=== PATIENT | female | born 1960 | race Caucasian/White ===

== ENCOUNTER 2016-07-19 14:17 | Emergency (ER) | payer OTHER ==
[~2016-07-19] VITALS: Ht 160 cm; Wt 120.1 kg
[~2016-07-19 14:17] MED LIST: ADVIL200 MG PO; ALBUTEROL SULF8.5 GM IH; BACTRIM,SEPT1 TABLET PO; CEFDINIR300 MG PO; CIPRO500 MG PO; CLEOCIN300 MG PO; KEFLEX500 MG PO; KENALOG,ARISTOC80 G1 TP; KENALOG,ARISTOC80 GM TP; LEVAQUIN750 MG PO; NOHOMEMEDS; PERCOCET 5/31 TABLET PO; PREDNISONE20 MG PO; PROAIR HFA8.5 GM IH; PYRIDIUM100 MG PO; ZITHROMAX250 MG PO
[2016-07-19] MEDS ORDERED: ERYTHROMYCIN O3.5 GM LEFT EYE (18:01)
[2016-07-19 18:31] VITALS: BP 142/89
== END 2016-07-19 18:32 | disposition home or self-care (01) ==
LOC: EME 14:17
DX: H10.9 Unspecified conjunctivitis (principal); H61.22 Impacted cerumen, left ear; J06.9 Acute upper respiratory infection, unspecified; Z87.891 Personal history of nicotine dependence
CPT/HCPCS: 99281; 99284

== ENCOUNTER 2016-12-12 07:37 | Emergency (ER) | payer OTHER ==
[~2016-12-12] VITALS: Ht 160 cm; Wt 130.8 kg
[~2016-12-12 07:37] MED LIST changes: +ERYTHROMYCIN O3.5 GM LEFT EYE
[2016-12-12 08:15] LABS: HEMATOCRIT 41.7 % (36.0-46.0); MCHC 32.1 G/DL (30.0-36.0); MCV 93.3 FL (83-99); PLATELET COUNT 229 K/uL (156-360); RBC DIS.WIDTH-CV 12.7 % (11.8-14.6); RBC DIS.WIDTH-SD 44.1 % (39-53); RED BLOOD COUNT 4.47 M/uL (3.80-5.20); WHITE BLOOD COUNT 10.1 K/uL (4.1-10.2)
[2016-12-12 08:20] LABS: ADD MIUA? YES; BILIRUBIN NEGATIVE; BLOOD LARGE; COLOR AMBER ((YELLOW)); GLUCOSE (STRIP) NEGATIVE; KETONES NEGATIVE; LEUKOCYTES LARGE; NITRITE NEGATIVE; PROTEIN (STRIP) 100; SPECIFIC GRAVITY 1.031 (1.000-1.030); UROBILINOGEN 0.2 MG/DL (0.2-1.0)
[2016-12-12 08:25] LABS: CHLORIDE 105 mEq/L (99-109); POTASSIUM 4.1 mEq/L (3.7-5.4); SODIUM 137 mEq/L (136-147)
[2016-12-12 08:27] LABS: GLUCOSE 117 mg/dL (70-99)
[2016-12-12 08:28] LABS: ANION GAP 6 MEQ/L (2-14)
[2016-12-12 08:29] LABS: TOTAL BILIRUBIN 0.4 mg/dL (0.0-1.0)
[2016-12-12 08:30] LABS: ALKALINE PHOSPHATASE 94 IU/L (3-129)
[2016-12-12 08:31] LABS: GFR ESTIMATE (CALCULATED) > 59 mL/min/
[2016-12-12 08:32] LABS: UREA NITROGEN (BUN) 18 mg/dL (9-23)
[2016-12-12 08:39] LABS: QUANTITATIVE HCG < 4.0 MIU/ML
[2016-12-12 08:40] LABS: BACTERIA 2+ /HPF; CASTS NONE SEEN /LPF; CRYSTALS NONE SEEN; EPITHELIAL CELLS RARE /HPF; MUCUS NONE SEEN /LPF; RED BLOOD CELLS 15-20 /HPF (0-5); UCUL ADDED? YES; WHITE BLOOD CELLS TNTC /HPF (0-5)
[2016-12-12] MEDS ORDERED: KEFLEX500 MG PO (11:10)
[2016-12-12] MEDS ORDERED: PYRIDIUM100 MG PO (11:10)
[2016-12-12] MEDS ORDERED: KENALOG,ARISTOC80 G1 TP (11:11)
[2016-12-12 11:19] VITALS: BP 149/79
== END 2016-12-12 11:20 | disposition home or self-care (01) ==
LOC: EME 07:37
DX: N39.0 Urinary tract infection, site not specified (principal); L20.89 Other atopic dermatitis; Z87.440 Personal history of urinary (tract) infections; Z88.0 Allergy status to penicillin; Z88.5 Allergy status to narcotic agent; Z87.891 Personal history of nicotine dependence
CPT/HCPCS: 80053; 81003; 84702; 85027; 87086; 99281; 99284

== ENCOUNTER 2016-12-29 18:38 | Emergency (ER) | payer OTHER ==
[~2016-12-29] VITALS: Ht 160 cm; Wt 130.7 kg
[2016-12-29 19:07] LABS: ADD MIUA? YES; BILIRUBIN NEGATIVE; BLOOD NEGATIVE; COLOR AMBER ((YELLOW)); GLUCOSE (STRIP) NEGATIVE; KETONES NEGATIVE; LEUKOCYTES TRACE; NITRITE POSITIVE; PROTEIN (STRIP) 30; SPECIFIC GRAVITY 1.023 (1.000-1.030)
[2016-12-29 19:13] LABS: BACTERIA RARE /HPF; EPITHELIAL CELLS 1+ /HPF; MUCUS 1+ /LPF; UCUL ADDED? NO; WHITE BLOOD CELLS 30-40 /HPF (0-5)
[2016-12-29] MEDS ORDERED: CIPRO250 MG PO (20:44)
[2016-12-29] MEDS ORDERED: PYRIDIUM200 MG PO (20:44)
[2016-12-29 21:29] VITALS: BP 144/88
== END 2016-12-29 21:31 | disposition home or self-care (01) ==
LOC: EME 18:38
DX: N39.0 Urinary tract infection, site not specified (principal); Z87.440 Personal history of urinary (tract) infections; Z87.891 Personal history of nicotine dependence
CPT/HCPCS: 81003; 99281; 99284

== ENCOUNTER 2017-03-15 10:51 | Emergency (ER) | payer OTHER ==
[~2017-03-15] VITALS: Ht 160 cm; Wt 132.4 kg
[~2017-03-15 10:51] MED LIST changes: +CIPRO250 MG PO; +PYRIDIUM200 MG PO
[2017-03-15 11:23] LABS: ADD MIUA? YES; BILIRUBIN NEGATIVE; BLOOD SMALL; COLOR AMBER ((YELLOW)); GLUCOSE (STRIP) NEGATIVE; KETONES NEGATIVE; LEUKOCYTES TRACE; NITRITE POSITIVE; PROTEIN (STRIP) 100; SPECIFIC GRAVITY 1.032 (1.000-1.030)
[2017-03-15 11:35] LABS: BACTERIA 1+ /HPF; EPITHELIAL CELLS 2+ /HPF; HYALINE CASTS 0-5 /LPF; MUCUS 3+ /LPF; UCUL ADDED? YES; WHITE BLOOD CELLS TNTC /HPF (0-5)
[2017-03-15 11:58] LABS: HEMATOCRIT 43.8 % (36.0-46.0); MCH 29.9 PG (29.0-34.0); MCV 93.6 FL (83-99); MEAN PLAT.VOLUME 9.9 uM^3 (9.5-12.4); PLATELET COUNT 227 K/uL (156-360); RBC DIS.WIDTH-CV 13.2 % (11.8-14.6); RBC DIS.WIDTH-SD 45.2 % (39-53); RED BLOOD COUNT 4.68 M/uL (3.80-5.20); WHITE BLOOD COUNT 10.2 K/uL (4.1-10.2)
[2017-03-15 12:06] LABS: CHLORIDE 103 mEq/L (99-109); POTASSIUM 4.3 mEq/L (3.7-5.4); SODIUM 141 mEq/L (136-147)
[2017-03-15 12:09] LABS: GLUCOSE 118 mg/dL (70-99)
[2017-03-15 12:10] LABS: ANION GAP 11 MEQ/L (2-14)
[2017-03-15 12:11] LABS: TOTAL BILIRUBIN 0.4 mg/dL (0.0-1.0)
[2017-03-15 12:12] LABS: ALKALINE PHOSPHATASE 86 IU/L (3-129); GFR ESTIMATE (CALCULATED) > 59 mL/min/
[2017-03-15 12:13] LABS: UREA NITROGEN (BUN) 15 mg/dL (9-23)
[2017-03-15 12:21] LABS: QUANTITATIVE HCG < 4.0 MIU/ML
[2017-03-15] MEDS ORDERED: PYRIDIUM200 MG PO (12:32)
[2017-03-15] MEDS ORDERED: MACROBID100 MG PO (12:32)
[2017-03-15 12:46] VITALS: BP 160/88
== END 2017-03-15 12:48 | disposition home or self-care (01) ==
LOC: EME 10:51
DX: N39.0 Urinary tract infection, site not specified (principal); Z87.440 Personal history of urinary (tract) infections; Z87.891 Personal history of nicotine dependence; Z88.8 Allergy status to other drugs, medicaments and biological substances
CPT/HCPCS: 80053; 81003; 84702; 85027; 87077; 87086; 87186; 99281; 99285; J0696

== ENCOUNTER 2017-12-27 21:10 | Emergency (ER) | payer OTHER ==
[~2017-12-27] VITALS: Ht 160 cm; Wt 134.9 kg
[~2017-12-27 21:10] MED LIST changes: +MACROBID100 MG PO
[2017-12-27 21:37] LABS: HEMATOCRIT 41.9 % (36.0-46.0); MCH 31.3 PG (29.0-34.0); MCHC 33.4 G/DL (30.0-36.0); MCV 93.7 FL (83-99); PLATELET COUNT 224 K/uL (156-360); RBC DIS.WIDTH-CV 13.2 % (11.8-14.6); RBC DIS.WIDTH-SD 45.3 % (39-53); RED BLOOD COUNT 4.47 M/uL (3.80-5.20); WHITE BLOOD COUNT 12.4 K/uL (4.1-10.2)
[2017-12-27 21:49] LABS: CHLORIDE 104 mEq/L (99-109); POTASSIUM 4.2 mEq/L (3.7-5.4); SODIUM 140 mEq/L (136-147)
[2017-12-27 21:51] LABS: GLUCOSE 122 mg/dL (70-99)
[2017-12-27 21:53] LABS: APPEARANCE CLOUDY ((CLEAR)); BILIRUBIN NEGATIVE; BLOOD SMALL; COLOR YELLOW ((YELLOW)); GLUCOSE (STRIP) NEGATIVE; KETONES 5; LEUKOCYTES MODERATE; NITRITE NEGATIVE; PROTEIN (STRIP) 30; SPECIFIC GRAVITY 1.038 (1.000-1.030)
[2017-12-27 21:55] LABS: CREATININE 1.2 mg/dL (0.6-1.3); GFR ESTIMATE (CALCULATED) 50 mL/min/
[2017-12-27 21:56] LABS: UREA NITROGEN (BUN) 23 mg/dL (9-23)
[2017-12-27 22:44] LABS: RED BLOOD CELLS RARE /HPF (0-5)
[2017-12-27 22:45] LABS: EPITHELIAL CELLS RARE /HPF
[2017-12-27 22:46] LABS: AMORPHOUS URATES CRYSTALS 1+; BACTERIA RARE /HPF; MUCUS NONE SEEN /LPF; UCUL ADDED? YES
[2017-12-28] MEDS ORDERED: CEFTIN250 MG PO (01:12)
[2017-12-28 01:36] VITALS: BP 148/65
== END 2017-12-28 01:37 | disposition home or self-care (01) ==
LOC: EME 21:10
DX: N39.0 Urinary tract infection, site not specified (principal); N21.0 Calculus in bladder; K76.0 Fatty (change of) liver, not elsewhere classified; Z90.49 Acquired absence of other specified parts of digestive tract; Z87.442 Personal history of urinary calculi; Z87.440 Personal history of urinary (tract) infections; Z88.0 Allergy status to penicillin; Z88.2 Allergy status to sulfonamides; Z87.891 Personal history of nicotine dependence
CPT/HCPCS: 74176; 80048; 81003; 85027; 87077; 87086; 87186; J1885; J2405; J3010; J7040